=== PATIENT | male | born 1985 | race African-American/Black ===

== ENCOUNTER 2016-06-15 09:41 | Emergency (ER) | payer SELFPAY ==
[2016-06-15 09:45] VITALS: BP 135/86
--- NOTE | 2016-06-15 10:04 | ER Document Report ---
ED Neck/Back Problem - General Chief Complaint: Back Pain Stated Complaint: BACK PAIN Notes: The patient is a 30-year-old male, asked medical history chronic back pain, presents with his usual back pain for several years. He is requesting an x-ray of his lower spine because he took off work yesterday. He does not have a primary care physician. He denies saddle anesthesia, change in bowel or bladder , injury, fevers, IVDA, numbness, tingling or difficulty walking. TRAVEL OUTSIDE OF THE [place] IN LAST 30 DAYS: No - Related Data Allergies/Adverse Reactions: No Known Allergies Allergy (Unverified 06/15/16 09:45) Past Medical History - General Information source: Patient - Social History Smoking Status: Current Every Day Smoker Chew tobacco use (# tins/day): No Frequency of alcohol use: Occasional Drug Abuse: None Family History: Reviewed & Not Pertinent Patient has suicidal ideation: No Patient has homicidal ideation: No Renal/ Medical History: Denies: Hx Peritoneal Dialysis - Immunizations Immunizations up to date: No Hx Diphtheria, Pertussis, Tetanus Vaccination: No Review of Systems - Review of Systems Notes: REVIEW OF SYSTEMS: CONSTITUTIONAL: -fevers, -chills EENT: -eye pain, -difficulty swallowing, -nasal congestion CARDIOVASCULAR:-chest pain, -syncope. RESPIRATORY: -cough, -SOB GASTROINTESTINAL: -abdominal pain, - nausea, -vomiting, -diarrhea GENITOURINARY: -dysuria, -hematuria MUSCULOSKELETAL: +back pain, -neck pain SKIN: -rash or skin lesions. HEMATOLOGIC: -easy bruising or bleeding. LYMPHATIC: -swollen, enlarged glands. NEUROLOGICAL: -altered mental status or loss of consciousness, -headache, - neurologic symptoms PSYCHIATRIC: -anxiety, -depression. ALL OTHER SYSTEMS REVIEWED AND NEGATIVE. Physical Exam - Vital signs Vitals: Temp Pulse Resp BP Pulse Ox 98.8 F 78 20 135/86 H 98 06/15/16 09:44 06/15/16 09:44 06/15/16 09:44 06/15/16 09:44 06/15/16 09:44 - Notes Notes: PHYSICAL EXAMINATION: GENERAL: Well-appearing, well-nourished and in no acute distress. HEAD: Atraumatic, normocephalic. EYES: Pupils equal round and reactive to light, extraocular movements intact, sclera anicteric, conjunctiva are normal. ENT: nares patent, oropharynx clear without exudates. Moist mucous membranes. NECK: Normal range of motion, supple without lymphadenopathy LUNGS: Breath sounds clear to auscultation bilaterally and equal. No wheezes rales or rhonchi. HEART: Regular rate and rhythm without murmurs ABDOMEN: Soft, nontender, normoactive bowel sounds. No guarding, no rebound. No masses appreciated. EXTREMITIES: Normal range of motion, no pitting or edema. No cyanosis. Non- tender midline spine or paraspinal muscles. NEUROLOGICAL: Cranial nerves grossly intact. Normal speech, normal gait. Normal sensory, motor, and reflex exams. PSYCH: Normal mood, normal affect. SKIN: Warm, Dry, normal turgor, no rashes or lesions noted. Course - Re-evaluation Re-evalutation: Patient has no red flag signs for low back pain. Patient's back pain ongoing for multiple years. Told him that an x-ray of his lumbar spine is not indicated at this time. Referred him to primary care physician and instructed him to begin anti-inflammatories. - Vital Signs Vital signs: Temp Pulse Resp BP Pulse Ox 98.8 F 78 20 135/86 H 98 06/15/16 09:44 06/15/16 09:44 06/15/16 09:44 06/15/16 09:44 06/15/16 09:44 Discharge - Discharge Clinical Impression: Chronic back pain Qualifiers: Back pain location: low back pain Back pain laterality: bilateral Sciatica presence: without sciatica Qualified Code(s): M54.5 - Low back pain Condition: Good Disposition: HOME, SELF-CARE Additional Instructions: Take Motrin or Naprosyn to help with your low back pain. [facility] with [facility] for further evaluation and treatment. LOW BACK PAIN: Three out of every four people will have an episode of disabling back pain during their lifetime. Most commonly the pain is due to straining of the muscles and ligaments in the low back. Usual treatment includes: (1) Rest on a firm surface. Avoid lying on your stomach. (2) Ice pack the painful area. After a few days, gentle heat may be used intermittently to relax the area, or ice packs can be continued. (3) Medication may be needed -- muscle relaxers and antiinflammatory medicines are commonly used. (4) As the back improves, exercises are prescribed to strengthen the back and abdominal muscles. Your doctor will advise you on the proper care for your back at each stage in your recovery. You may be better in a few days -- or healing may take several weeks. If new symptoms of a "herniated disc" (radiation of pain, numbness, or tingling down the back of the leg or weakness in the leg) occur, you should be re-examined. Further testing may be necessary. ICE PACKS: Apply ice packs frequently against the painful area. Many different schedules are recommended, such as "20 minutes on, 20 minutes off" or "one hour ice, two hours rest." If you need to work, you may need to go longer between ice treatments. You should plan to have the area ice packed AT LEAST one fourth of the time. The ice should be applied over the wrap, tape, or splint, or over a layer of cloth -- not directly against the skin. Some ice bags have a built-in cloth and can be put directly on the skin. WARM PACKS: After approximately two days, apply gentle heat (such as a heating pad or hot water bottle) for about 20 to 30 minutes about every two hours -- at least four times daily. Warmth and elevation will help you make a more rapid recovery , and will ease the pain considerably. Do not use HOT heat, and never apply heat for longer than 30 minutes. The continuous heat can invisibly damage skin and muscles -- even when no burn is seen on the surface. Damaged muscles can make you MORE sore. FOLLOW-UP CARE: If you have been referred to a physician for follow-up care, call the physician s office for an appointment as you were instructed or within the next two days. If you experience worsening or a significant change in your symptoms, notify the physician immediately or return to the Emergency Department at any time for re-evaluation. Referrals: [facility] [Provider Group] - Follow up as needed
== END 2016-06-15 10:27 | disposition home or self-care (01) ==
LOC: ER 09:41
DX: G89.29 Other chronic pain (principal); M54.5 Low back pain; F17.200 Nicotine dependence, unspecified, uncomplicated
CPT/HCPCS: 99283

== ENCOUNTER 2019-01-31 18:06 | Emergency (ER) | payer SELFPAY ==
[2019-01-31] MEDS ORDERED: ASPIRIN 81 MG TABLET, CHEWABLE PO ONE (18:15)
[2019-01-31 18:36] LABS: ABSOLUTE EOSINOPHILS # (AUTO) 0.2 10^3/uL (0.0-0.6); ABSOLUTE LYMPHOCYTES (AUTO) 4.9 10^3/uL (0.5-4.7); ABSOLUTE MONOCYTES (AUTO) 0.9 10^3/uL (0.1-1.4); ABSOLUTE NEUT (AUTO) 5.5 10^3/uL (1.7-8.2); BASOPHILS % (AUTO) 0.4 % (0-2); EOSINOPHILS % (AUTO) 1.3 % (0-6); HEMATOCRIT 49.9 % (37.9-51.0); LYMPHOCYTES % (AUTO) 42.3 % (13-45); MEAN CORPUSCULAR HEMOGLOBIN 31.2 pg (27.0-33.4); MEAN CORPUSCULAR VOLUME 92 fl (80-97); PLATELET COUNT 275 10^3/uL (150-450); RED BLOOD COUNT 5.44 10^6/uL (4.35-5.55); RED CELL DISTRIBUTION WIDTH 12.4 % (11.5-14.0); TOTAL CELLS COUNTED % (AUTO) 100 %; WHITE BLOOD COUNT 11.5 10^3/uL (4.0-10.5)
[2019-01-31 18:55] LABS: ALBUMIN 4.3 g/dL (3.5-5.0); ALKALINE PHOSPHATASE 66 U/L (38-126); ASPARTATE AMINO TRANSFERASE 28 U/L (17-59); BILIRUBIN,DIRECT 0.1 mg/dL (0.0-0.4); BILIRUBIN,TOTAL 0.3 mg/dL (0.2-1.3); BLOOD UREA NITROGEN 12 mg/dL (7-20); CREATINE KINASE 190 U/L (55-170); GLUCOSE 106 mg/dL (75-110); TOTAL PROTEIN 7.2 g/dL (6.3-8.2)
[2019-01-31 19:00] LABS: CARBON DIOXIDE 17 mmol/L (22-30); CHLORIDE 102 mmol/L (98-107)
--- NOTE | 2019-01-31 19:02 | ER Document Report ---
ED Substance Abuse / Acc. OD - General Chief Complaint: Drug Abuse Stated Complaint: RAPID HEART RATE Time Seen by Provider: 01/31/19 18:51 Notes: Patient is a 33-year-old male presents to the emergency department after smoking cocaine and marijuana. Patient voices he was in a park today. States he typically does use cocaine and marijuana but today used it "from somebody new." States his hands started shaking. States he started feeling short of breath. Bystanders reported to EMS that the patient was screaming and yelling in the park. He was brought to the emergency department via EMS. Patient's denying any chest pain or respiratory distress at this time. Patient voices he just feels "tired." Pt. denies any trauma, falls. He voices he was "awake and alert to the whole time." [place] as though his hands were "going numb." Patient voices no medical problems, takes no daily medications, has no allergies. TRAVEL OUTSIDE OF THE [place] IN LAST 30 DAYS: No - Related Data Allergies/Adverse Reactions: No Known Allergies Allergy (Unverified 06/15/16 09:45) Past Medical History - General Information source: Patient, Emergency Med Personnel - Social History Smoking Status: Current Every Day Smoker Drug Abuse: Cocaine, Marijuana Family History: Reviewed & Not Pertinent Patient has suicidal ideation: No Patient has homicidal ideation: No Renal/ Medical History: Denies: Hx Peritoneal Dialysis - Immunizations Immunizations up to date: No Hx Diphtheria, Pertussis, Tetanus Vaccination: No Review of Systems - Review of Systems Constitutional: denies: Fever EENT: No symptoms reported Cardiovascular: See HPI Respiratory: See HPI Gastrointestinal: No symptoms reported Genitourinary: No symptoms reported Male Genitourinary: No symptoms reported Musculoskeletal: See HPI Skin: No symptoms reported Hematologic/Lymphatic: No symptoms reported Neurological/Psychological: See HPI Physical Exam - Vital signs Vitals: Resp Pulse Ox 17 99 01/31/19 18:15 01/31/19 18:15 - Notes Notes: GENERAL: Alert, interacts well. No acute distress. HEAD: Normocephalic, atraumatic. EYES: Pupils equal, round, and reactive to light. Extraocular movements intact. ENT: Oral mucosa moist, tongue midline. NECK: Full range of motion. Supple. Trachea midline. LUNGS: Clear to auscultation bilaterally, no wheezes, rales, or rhonchi. No respiratory distress. HEART: Tachycardic rate and rhythm. No murmur ABDOMEN: Soft, non-tender. Non-distended. Bowel sounds present in all 4 quadrants. EXTREMITIES: Moves all 4 extremities spontaneously. No edema, normal radial and dorsalis pedis pulses bilaterally. No cyanosis. 5 out of 5 strength noted all 4 extremities. BACK: no cervical, thoracic, lumbar midline tenderness. No saddle anesthesia, normal distal neurovascular exam. NEUROLOGICAL: Alert and oriented x3. Normal speech. cranial nerves II through XII grossly intact. PSYCH: Normal affect, normal mood. SKIN: Warm, dry, normal turgor. No rashes or lesions noted. Course - Re-evaluation Re-evalutation: 01/31/19 20:52 Laboratory 01/31/19 01/31/19 01/31/19 18:14 18:14 18:14 WBC 11.5 H RBC 5.44 Hgb 17.0 Hct 49.9 MCV 92 MCH 31.2 MCHC 34.0 RDW 12.4 Plt Count 275 Lymph % (Auto) 42.3 [place] % (Auto) 8.0 Eos % (Auto) 1.3 Baso % (Auto) 0.4 Absolute Neuts (auto) 5.5 Absolute Lymphs (auto) 4.9 H Absolute Monos (auto) 0.9 Absolute Eos (auto) 0.2 Absolute Basos (auto) 0.0 Seg Neutrophils % 48.0 Sodium 138.6 Potassium 3.6 Chloride 102 Carbon Dioxide 17 L Anion Gap 20 H BUN 12 Creatinine 1.83 H Est GFR ( Amer) 52 L Est GFR (MDRD) Non-Af 43 L Glucose 106 Calcium 9.5 Magnesium Total Bilirubin 0.3 Direct Bilirubin 0.1 Neonat Total Bilirubin Not Reportable Neonat Direct Bilirubin Not Reportable Neonat Indirect Bili Not Reportable AST 28 ALT 22 Alkaline Phosphatase 66 Creatine Kinase 190 H CK-MB (CK-2) 1.08 Troponin I < 0.012 Total Protein 7.2 Albumin 4.3 Urine Color Urine Appearance Urine pH Ur Specific [place] Urine Protein Urine Glucose (UA) Urine Ketones Urine Blood Urine Nitrite Urine Bilirubin Urine Urobilinogen Ur Leukocyte Esterase Urine WBC (Auto) Urine RBC (Auto) U Hyaline Cast (Auto) Urine Mucus (Auto) Urine Ascorbic Acid Salicylates Urine Opiates Screen Urine Methadone Screen Acetaminophen Ur Barbiturates Screen Ur Phencyclidine Scrn Ur Amphetamines Screen U Benzodiazepines Scrn Urine Cocaine Screen U Marijuana (THC) Screen Serum Alcohol 01/31/19 01/31/19 01/31/19 18:14 19:28 19:28 WBC RBC Hgb Hct MCV MCH MCHC RDW Plt Count Lymph % (Auto) [place] % (Auto) Eos % (Auto) Baso % (Auto) Absolute Neuts (auto) Absolute Lymphs (auto) Absolute Monos (auto) Absolute Eos (auto) Absolute Basos (auto) Seg Neutrophils % Sodium Potassium Chloride Carbon Dioxide Anion Gap BUN Creatinine Est GFR ( Amer) Est GFR (MDRD) Non-Af Glucose Calcium Magnesium 1.8 Total Bilirubin Direct Bilirubin Neonat Total Bilirubin Neonat Direct Bilirubin Neonat Indirect Bili AST ALT Alkaline Phosphatase Creatine Kinase CK-MB (CK-2) Troponin I Total Protein Albumin Urine Color YELLOW Urine Appearance CLEAR Urine pH 6.0 Ur Specific [place] 1.008 Urine Protein 30 H Urine Glucose (UA) NEGATIVE Urine Ketones 25 H Urine Blood NEGATIVE Urine Nitrite NEGATIVE Urine Bilirubin MODERATE H Urine Urobilinogen 4.0 H Ur Leukocyte Esterase TRACE H Urine WBC (Auto) 1 Urine RBC (Auto) 4 U Hyaline Cast (Auto) 31 Urine Mucus (Auto) MANY Urine Ascorbic Acid 20 H Salicylates < 1.0 L Urine Opiates Screen NEGATIVE Urine Methadone Screen NEGATIVE Acetaminophen < 10 L Ur Barbiturates Screen NEGATIVE Ur Phencyclidine Scrn NEGATIVE Ur Amphetamines Screen NEGATIVE U Benzodiazepines Scrn NEGATIVE Urine Cocaine Screen UNCONFIRMED POSITIVE U Marijuana (THC) Screen UNCONFIRMED POSITIVE Serum Alcohol < 10 Chest X-Ray 01/31/19 18:52 IMPRESSION: NO ACUTE RADIOGRAPHIC FINDING IN THE CHEST. Patient's labs do show a slight leukocytosis, does show a creatinine of 1.83 with a CK of 190. This could be due to dehydration or drug abuse. His troponin was negative, urine does show signs of proteinuria and ketones, also potential dehydration. I discussed with patient he should stop doing cocaine and marijuana, they were both positive and his drug tox. Patient's heart rate has come down to 71 at this time. Blood pressure 134/86, respiratory rate of 14, oxygen saturation 98% on room air. Patient voices no concerns at this time. I have again discussed with patient at bedside he should stop using cocaine and marijuana. I discussed following up at [facility] for continued evaluation of his kidney function. I discussed close return precautions. Patient stable for discharge. - Vital Signs Vital signs: Temp Pulse Resp BP Pulse Ox 20 152/91 H 97 01/31/19 19:01 01/31/19 19:01 01/31/19 19:01 - Laboratory Result Diagrams: 01/31/19 18:14 01/31/19 18:14 Laboratory results interpreted by me: 01/31/19 01/31/19 01/31/19 18:14 18:14 18:14 WBC 11.5 H Absolute Lymphs (auto) 4.9 H Carbon Dioxide 17 L Anion Gap 20 H Creatinine 1.83 H Est GFR ( Amer) 52 L Est GFR (MDRD) Non-Af 43 L Creatine Kinase 190 H Urine Protein Urine Ketones Urine Bilirubin Urine Urobilinogen Ur Leukocyte Esterase Urine Ascorbic Acid Salicylates < 1.0 L Acetaminophen < 10 L 01/31/19 19:28 WBC Absolute Lymphs (auto) Carbon Dioxide Anion Gap Creatinine Est GFR ( Amer) Est GFR (MDRD) Non-Af Creatine Kinase Urine Protein 30 H Urine Ketones 25 H Urine Bilirubin MODERATE H Urine Urobilinogen 4.0 H Ur Leukocyte Esterase TRACE H Urine Ascorbic Acid 20 H Salicylates Acetaminophen Discharge - Discharge Clinical Impression: Cocaine abuse, Marijuana abuse, Elevated serum creatinine Condition: Stable Disposition: HOME, SELF-CARE Instructions: Cocaine Abuse ([facility]) Additional Instructions: As we discussed you have been seen and treated in the emergency department for cocaine and marijuana abuse. Please stop using both of these drugs. Your kidney function was also noted to be elevated at today's visit. This could be because of dehydration. This could also be an injury to your kidneys from drug abuse. You should follow-up at 1 of the 2 clinics I have provided in this paper. You should get repeat laboratory testing within the next 12 to 24 hours. Please return to the emergency room for any concerns. Referrals: [facility] [Provider Group] - Follow up as needed [facility] [Provider Group] - Follow up as needed
[2019-01-31 19:04] LABS: CREATINE KINASE MB 1.08 ng/mL (<4.55)
[2019-01-31 19:05] LABS: TROPONIN I < 0.012 ng/mL
[2019-01-31] MEDS ORDERED: NORMAL SALINE 1000 ML 1,000 ML IV ONE (19:14)
[2019-01-31 19:17] LABS: CALCIUM 9.5 mg/dL (8.4-10.2); POTASSIUM 3.6 mmol/L (3.6-5.0)
[2019-01-31 19:19] LABS: ANION GAP 20 (5-19)
[2019-01-31 19:25] LABS: ACETAMINOPHEN < 10 ug/mL (10-30); ALCOHOL < 10 mg/dL (NONE DETECTED); SALICYLATE < 1.0 mg/dL (2.0-20.0)
--- NOTE | 2019-01-31 19:33 | RADIOLOGY REPORT (SQ) ---
EXAM DESCRIPTION: CHEST 2 VIEWS COMPLETED DATE/TIME: 01/31/2019 7:15 pm REASON FOR STUDY: SOB COMPARISON: None. EXAM PARAMETERS: NUMBER OF VIEWS: two views TECHNIQUE: Digital Frontal and Lateral radiographic views of the chest acquired. RADIATION DOSE: NA LIMITATIONS: none FINDINGS: LUNGS AND PLEURA: No opacities, masses or pneumothorax. No pleural effusion. MEDIASTINUM AND HILAR STRUCTURES: No masses or contour abnormalities. HEART AND VASCULAR STRUCTURES: Heart normal size. No evidence for failure. BONES: No acute findings. HARDWARE: None in the chest. OTHER: No other significant finding. IMPRESSION: NO ACUTE RADIOGRAPHIC FINDING IN THE CHEST. TECHNICAL DOCUMENTATION: JOB ID: [id number] [id number] 2010 [employer]- All Rights Reserved Reading location - IP/workstation name: [email or web address]
--- NOTE | 2019-01-31 19:39 | EKG REPORT ---
SEVERITY:- ABNORMAL ECG - SINUS TACHYCARDIA PROBABLE LEFT ATRIAL ABNORMALITY ABNRM R PROG, CONSIDER ASMI OR LEAD PLACEMENT : Confirmed by: Gwyn Sequeira MD 31-Jan-2019 19:38:50
[2019-01-31 20:04] LABS: APPEARANCE,URINE CLEAR; BILIRUBIN,URINE MODERATE (NEGATIVE); COLOR,URINE YELLOW; GLUCOSE, URINE NEGATIVE (NEGATIVE); KETONES,URINE 25 mg/dL (NEGATIVE); LEUKOCYTE ESTERASE,URINE TRACE (NEGATIVE); NITRITE,URINE NEGATIVE (NEGATIVE); PROTEIN,URINE 30 mg/dL (NEGATIVE)
[2019-01-31 20:09] LABS: URINE SPECIFIC GRAVITY 1.008
[2019-01-31 20:21] LABS: URINE AMPHETAMINES SCREEN NEGATIVE; URINE BARBITURATES SCREEN NEGATIVE; URINE BENZODIAZEPINES SCREEN NEGATIVE; URINE COCAINE SCREEN UNCONFIRMED POSITIVE; URINE MARIJUANA (THC) SCREEN UNCONFIRMED POSITIVE; URINE METHADONE SCREEN NEGATIVE; URINE PHENCYCLIDINE SCREEN NEGATIVE
[2019-01-31 21:09] VITALS: BP 130/78
== END 2019-01-31 21:12 | disposition home or self-care (01) ==
LOC: ER 18:06
DX: F14.10 Cocaine abuse, uncomplicated (principal); F12.10 Cannabis abuse, uncomplicated; R00.0 Tachycardia, unspecified; D72.829 Elevated white blood cell count, unspecified; R79.89 Other specified abnormal findings of blood chemistry; F17.200 Nicotine dependence, unspecified, uncomplicated
CPT/HCPCS: 93005; 99285; 96360; 36415; 82553; 80307 ×4; 82550; 83735; 85025; 80053; 81001; 84484; 71046; 93010; J7030

== ENCOUNTER 2019-02-02 00:47 | Emergency (ER) | payer SELFPAY ==
[2019-02-02] MEDS ORDERED: NORMAL SALINE 1000 ML 1,000 ML IV ONE (03:20)
--- NOTE | 2019-02-02 03:21 | ER Document Report ---
ED General - General Chief Complaint: Chest Pain Stated Complaint: SHORTNESS OF BREATH Time Seen by Provider: 02/02/19 02:51 Notes: Patient is a 33-year-old male that comes emergency department for chief complaint of chest discomfort and feeling shaky. He states he was seen just over a day ago in the emergency department after he smoked marijuana and used cocaine, he states that he felt terrible then and he is worried that it is "starting to come back". When I ask him if he had chest pain today he states "hernando" but states he is more concerned with the shaky feeling in his arms and legs. He denies using any medications or recreational substances again since that time. He does smoke, he denies any diagnosed medical problems or daily m edications. He denies family history of cardiac disease. He states he just wants to be checked out. He states he also was told his kidney functioning was borderline. TRAVEL OUTSIDE OF THE [place] IN LAST 30 DAYS: No - Related Data Allergies/Adverse Reactions: No Known Allergies Allergy (Unverified 06/15/16 09:45) Past Medical History - General Information source: Patient - Social History Smoking Status: Current Every Day Smoker Frequency of alcohol use: None Drug Abuse: Cocaine, Marijuana Lives with: Family Family History: Reviewed & Not Pertinent Patient has suicidal ideation: No Patient has homicidal ideation: No Renal/ Medical History: Denies: Hx Peritoneal Dialysis - Immunizations Immunizations up to date: No Hx Diphtheria, Pertussis, Tetanus Vaccination: No Review of Systems - Review of Systems Constitutional: See HPI EENT: No symptoms reported Cardiovascular: See HPI Respiratory: No symptoms reported Gastrointestinal: No symptoms reported Genitourinary: No symptoms reported Male Genitourinary: No symptoms reported Musculoskeletal: See HPI Skin: No symptoms reported Hematologic/Lymphatic: No symptoms reported Neurological/Psychological: No symptoms reported Physical Exam - Vital signs Vitals: Temp Pulse Resp BP Pulse Ox 97.7 F 51 L 24 H 150/92 H 100 02/02/19 00:57 02/02/19 00:57 02/02/19 00:57 02/02/19 00:57 02/02/19 00:57 - Notes Notes: GENERAL: Alert, interacts well. No acute distress. HEAD: Normocephalic, atraumatic. EYES: Pupils equal, round, and reactive to light. Extraocular movements intact. ENT: Oral mucosa moist, tongue midline. Oropharynx unremarkable. Airway patent. NECK: Full range of motion. Supple. Trachea midline. LUNGS: Clear to auscultation bilaterally, no wheezes, rales, or rhonchi. No respiratory distress. HEART: Borderline bradycardia, normal rhythm, no murmur ABDOMEN: Soft, non-tender. Non-distended. Bowel sounds present in all 4 quadrants. GENITOURINARY: Deferred EXTREMITIES: Moves all 4 extremities spontaneously. No edema, normal radial and dorsalis pedis pulses bilaterally. No cyanosis. BACK: no cervical, thoracic, lumbar midline tenderness. No saddle anesthesia, normal distal neurovascular exam. Moves all extremities in full range of motion. NEUROLOGICAL: Alert and oriented x3. Normal speech. Cranial nerves II through XII grossly intact. PSYCH: Slightly flat but otherwise unremarkable, cooperative and answers questions reasonably SKIN: Warm, dry, normal turgor. No rashes or lesions noted. Course - Re-evaluation Re-evalutation: Patient has borderline bradycardia now and tachycardia last time but last time he was under the influence of cocaine. He denies chest pain when I reevaluated him. He states he has been "kind of" having during the day. Troponin is negative again. Chest x-ray unremarkable. Kidney functioning improved, given additional IV fluids. He still states he is getting shaky he does feel much better. When I discussed work-up patient states satisfaction and appreciation. I discussed the extreme risks of cocaine abuse in regards to short and long-term fatality from this. Patient states he will stop using this completely. He states he was feeling down because of his situation with his girlfriend at home, however he denies SI or HI, he declines additional management for this and states things are going to be fine but they did prompt him to use in the first p lace. Discussed follow-up and return precautions. Stable at time of discharge. - Vital Signs Vital signs: Temp Pulse Resp BP Pulse Ox 98 F 59 L 15 119/66 100 02/02/19 06:01 02/02/19 06:01 02/02/19 06:01 02/02/19 06:01 02/02/19 06:01 - Laboratory Result Diagrams: 02/02/19 04:10 02/02/19 04:10 Laboratory results interpreted by me: 02/02/19 04:10 Chloride 109 H Creatinine 1.39 H Est GFR (MDRD) Non-Af 58 L Total Protein 5.8 L Albumin 3.2 L - EKG Interpretation by Me Additional EKG results interpreted by me: EKG shows sinus bradycardia at a rate of 47. PACs are present. No T wave inversions or ST segment changes in consecutive leads. No significant change from prior except the rate is significantly different. Discharge - Discharge Clinical Impression: Cocaine abuse, Marijuana abuse, Elevated serum creatinine Condition: Stable Disposition: HOME, SELF-CARE Additional Instructions: Your kidney functioning is improving. Continue hydration at home. Avoid any recreational drugs as these are extremely dangerous and will kill you. Follow- up with primary care. Come back for any concerning symptoms including difficulty breathing, chest pain, inability to urinate, fever, or any other concerning or worsening symptoms.
--- NOTE | 2019-02-02 03:57 | RADIOLOGY REPORT (SQ) ---
CLINICAL HISTORY: chest pain COMPARISON: 01/31/2019. TECHNIQUE: XR CHEST 1 VIEW 02/02/2019 2:57 AM CDT FINDINGS: Cardiac silhouette is normal in size. Lungs are clear without consolidation, atelectasis, mass or edema. There is no pleural effusion. There is no pneumothorax. There are no acute osseous findings. IMPRESSION: Clear lungs.
[2019-02-02 04:27] LABS: ABSOLUTE EOSINOPHILS # (AUTO) 0.1 10^3/uL (0.0-0.6); ABSOLUTE LYMPHOCYTES (AUTO) 1.8 10^3/uL (0.5-4.7); ABSOLUTE MONOCYTES (AUTO) 0.5 10^3/uL (0.1-1.4); ABSOLUTE NEUT (AUTO) 4.1 10^3/uL (1.7-8.2); BASOPHILS % (AUTO) 0.5 % (0-2); HEMATOCRIT 44.3 % (37.9-51.0); HEMOGLOBIN 15.2 g/dL (13.5-17.0); LYMPHOCYTES % (AUTO) 28.3 % (13-45); MEAN CORPUSCULAR HEMOGLOBIN 31.7 pg (27.0-33.4); MEAN CORPUSCULAR HGB CONC 34.3 g/dL (32.0-36.0); MEAN CORPUSCULAR VOLUME 92 fl (80-97); PLATELET COUNT 222 10^3/uL (150-450); RED BLOOD COUNT 4.79 10^6/uL (4.35-5.55); RED CELL DISTRIBUTION WIDTH 12.8 % (11.5-14.0); SEGMENTED NEUTROPHILS % (AUTO) 62.2 % (42-78); TOTAL CELLS COUNTED % (AUTO) 100 %; WHITE BLOOD COUNT 6.5 10^3/uL (4.0-10.5)
[2019-02-02 04:46] LABS: ALBUMIN 3.2 g/dL (3.5-5.0); ALKALINE PHOSPHATASE 49 U/L (38-126); ANION GAP 6 (5-19); ASPARTATE AMINO TRANSFERASE 21 U/L (17-59); BILIRUBIN,DIRECT 0.1 mg/dL (0.0-0.4); BILIRUBIN,TOTAL 0.2 mg/dL (0.2-1.3); BLOOD UREA NITROGEN 10 mg/dL (7-20); CARBON DIOXIDE 28 mmol/L (22-30); CHLORIDE 109 mmol/L (98-107); CREATINE KINASE 131 U/L (55-170); GLUCOSE 90 mg/dL (75-110); TOTAL PROTEIN 5.8 g/dL (6.3-8.2)
[2019-02-02 06:04] VITALS: BP 119/66
--- NOTE | 2019-02-02 07:27 | EKG REPORT ---
SEVERITY:- ABNORMAL ECG - SINUS BRADYCARDIA ATRIAL PREMATURE COMPLEX BORDERLINE RIGHT AXIS DEVIATION CONSIDER ANTEROSEPTAL INFARCT : Confirmed by: Gwyn Sequeira MD 02-Feb-2019 07:27:09
--- NOTE | 2019-02-03 07:08 | EKG REPORT ---
SEVERITY:- OTHERWISE NORMAL ECG - SINUS BRADYCARDIA BORDERLINE RIGHT AXIS DEVIATION : Confirmed by: Gwyn Sequeira MD 03-Feb-2019 07:07:50
== END 2019-02-02 06:03 | disposition home or self-care (01) ==
LOC: ER 00:47
DX: F14.10 Cocaine abuse, uncomplicated (principal); F12.10 Cannabis abuse, uncomplicated; R79.89 Other specified abnormal findings of blood chemistry; I49.1 Atrial premature depolarization; F17.200 Nicotine dependence, unspecified, uncomplicated
CPT/HCPCS: 93005; 36415; 82550; 85025; 80053; 84484; 71045; 93010; J7030; 96360; 96361; 99285

== ENCOUNTER 2019-02-02 07:19 | Emergency (ER) | payer SELFPAY ==
[2019-02-02] MEDS ORDERED: ASPIRIN 81 MG TABLET, CHEWABLE PO ONE (07:27)
[2019-02-02 08:06] LABS: ABSOLUTE EOSINOPHILS # (AUTO) 0.1 10^3/uL (0.0-0.6); ABSOLUTE LYMPHOCYTES (AUTO) 1.5 10^3/uL (0.5-4.7); ABSOLUTE MONOCYTES (AUTO) 0.4 10^3/uL (0.1-1.4); ABSOLUTE NEUT (AUTO) 3.8 10^3/uL (1.7-8.2); BASOPHILS % (AUTO) 0.6 % (0-2); EOSINOPHILS % (AUTO) 1.9 % (0-6); HEMOGLOBIN 14.6 g/dL (13.5-17.0); LYMPHOCYTES % (AUTO) 26.2 % (13-45); MEAN CORPUSCULAR HEMOGLOBIN 31.3 pg (27.0-33.4); MEAN CORPUSCULAR HGB CONC 33.9 g/dL (32.0-36.0); MEAN CORPUSCULAR VOLUME 92 fl (80-97); MONOCYTES % (AUTO) 6.2 % (3-13); PLATELET COUNT 203 10^3/uL (150-450); RED BLOOD COUNT 4.66 10^6/uL (4.35-5.55); RED CELL DISTRIBUTION WIDTH 12.3 % (11.5-14.0); SEGMENTED NEUTROPHILS % (AUTO) 65.1 % (42-78); TOTAL CELLS COUNTED % (AUTO) 100 %; WHITE BLOOD COUNT 5.8 10^3/uL (4.0-10.5)
[2019-02-02] MEDS ORDERED: NORMAL SALINE 1000 ML 1,000 ML IV ONE (08:09)
[2019-02-02 08:33] LABS: ALBUMIN 3.2 g/dL (3.5-5.0); ALKALINE PHOSPHATASE 44 U/L (38-126); ANION GAP 7 (5-19); ASPARTATE AMINO TRANSFERASE 22 U/L (17-59); BILIRUBIN,DIRECT 0.1 mg/dL (0.0-0.4); BILIRUBIN,TOTAL 0.4 mg/dL (0.2-1.3); BLOOD UREA NITROGEN 9 mg/dL (7-20); CALCIUM 8.7 mg/dL (8.4-10.2); CARBON DIOXIDE 23 mmol/L (22-30); CHLORIDE 109 mmol/L (98-107); CREATINE KINASE 151 U/L (55-170); GLUCOSE 88 mg/dL (75-110); POTASSIUM 4.4 mmol/L (3.6-5.0); TOTAL PROTEIN 5.9 g/dL (6.3-8.2)
[2019-02-02 08:33] LABS: APPEARANCE,URINE CLEAR; BILIRUBIN,URINE NEGATIVE (NEGATIVE); COLOR,URINE YELLOW; GLUCOSE, URINE NEGATIVE (NEGATIVE); KETONES,URINE NEGATIVE (NEGATIVE); LEUKOCYTE ESTERASE,URINE NEGATIVE (NEGATIVE); NITRITE,URINE NEGATIVE (NEGATIVE); PROTEIN,URINE NEGATIVE (NEGATIVE); URINE SPECIFIC GRAVITY 1.015; UROBILINOGEN,URINE NEGATIVE mg/dL (<2.0)
[2019-02-02 08:45] LABS: CREATINE KINASE MB 0.87 ng/mL (<4.55)
[2019-02-02 08:47] LABS: TROPONIN I < 0.012 ng/mL
--- NOTE | 2019-02-02 08:49 | ER Document Report ---
ED General - General Chief Complaint: Chest Pain Stated Complaint: CHEST PAIN Time Seen by Provider: 02/02/19 08:08 TRAVEL OUTSIDE OF THE [place] IN LAST 30 DAYS: No - HPI Notes: Patient is a 33-year-old male with history of marijuana and cocaine abuse, last use 2 days ago, who presents after just being discharged several hours ago for the same symptoms. Patient states that he has been having a chest pressure intermittently in his chest and does not radiate. Patient states that he currently does not have any discomfort, but did before he arrived. Patient states that he had an unremarkable work-up earlier this morning. Denies drug allergies. Denies any prolonged immobilization, distance travel, recent surgery/trauma, personal cancer history, hormone use, or previous DVT/PE. No history of CAD, DM, hypertension. Denies any headache, fever, neck pain, URI, sore throat, palpitations, syncope, cough, shortness of breath, wheeze, dyspnea, abdominal pain, nausea/vomiting/diarrhea, urinary retention, dysuria, hematuria, or rash. - Related Data Allergies/Adverse Reactions: No Known Allergies Allergy (Unverified 06/15/16 09:45) Past Medical History - Social History Smoking Status: Current Some Day Smoker Family History: Reviewed & Not Pertinent Patient has suicidal ideation: No Patient has homicidal ideation: No Renal/ Medical History: Denies: Hx Peritoneal Dialysis - Immunizations Immunizations up to date: No Hx Diphtheria, Pertussis, Tetanus Vaccination: No Review of Systems - Review of Systems -: Yes All other systems reviewed and negative Physical Exam - Vital signs Vitals: Temp Pulse BP Pulse Ox 98.1 F 43 L 135/85 H 99 02/02/19 07:26 02/02/19 07:26 02/02/19 07:26 02/02/19 07:26 - Notes Notes: PHYSICAL EXAMINATION: GENERAL: Well-appearing, well-nourished and in no acute distress. HEAD: Atraumatic, normocephalic. EYES: Pupils equal round and reactive to light, extraocular movements intact, sclera anicteric, conjunctiva are normal. ENT: Nares patent and without discharge. oropharynx clear without exudates. No tonsilar hypertrophy or erythema. Moist mucous membranes. NECK: Normal range of motion, supple without lymphadenopathy LUNGS: Breath sounds clear to auscultation bilaterally and equal. No wheezes rales or rhonchi. HEART: Regular rate and rhythm without murmurs, rubs, gallops. ABDOMEN: Soft, nontender, nondistended abdomen. No guarding, no rebound. No masses appreciated. Normal bowel sounds present. No CVA tenderness bilaterally. Musculoskeletal: FROM to passive/active. Strength 5+/5. Espinoza neg. No asymmetry to LE's. Extremities: No cyanosis, clubbing, or edema b/l. Peripheral pulses 2+. Capillary refill less than 3 seconds. NEUROLOGICAL: Normal speech, normal gait. PSYCH: Normal mood, normal affect. SKIN: Warm, Dry, normal turgor, no rashes or lesions noted. Course - Re-evaluation Re-evalutation: 02/02/19 08:47 Patient is an afebrile, well-hydrated, 33-year-old male who is presenting with nonspecific chest pain. Patient was evaluated and discharged earlier this morning for the same symptoms without any acute changes noted. An unremarkable work-up at that time. We will recheck labs, tsh, magnesium. Will provide another liter of fluid, but he did receive 2 L last night. He is nontoxic- appearing. Patient's heart rate has been fluctuating from 40-70's approximately on the monitor, but his blood pressure has been acceptable and is currently 128/89. Reviewed HR and case with Dr. Walker who is in agreement with plan thus far and no further work up warranted otherwise if unremarkable labs. EKG acceptable. 02/02/19 11:[address] Mckenna (cardio) who does not recommend any further management and is okay with his HR 40-70 as his BP is good as well. He can f/u as outpatient. Patient is an afebrile, well-hydrated 33-year-old male who presents to the ED with atypical chest pain, possible correlation with his cocaine use. Vitals are acceptable without any significant tachycardia, tachypnea, or hypoxia. PE is otherwise unremarkable aside from the reproducible lateral lower chest wall tenderness. Patient is nontoxic-appearing and is tolerating p.o. without any difficulties. Pt is currently asymptomatic. CBC, CMP, EKG/cardiac enzymes 2 (including the one early this morning), chest x-ray are all unremarkable for any acute pathology. Patient has a heart score of 2, Wells score of 0, and is PERC negative. 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 Patient does not have any chest pain, dyspnea, or shortness of breath at this time. Patient's presentation and symptomatology creates low suspicion for ACS, PE, pneumothorax, pericarditis, dissection, respiratory compromise, severe dehydration, sepsis, meningitis, or other systemic emergent condition at this time. Patient is aware that his condition can change from initial presentation and he needs to monitor symptoms closely and seek medical attention for any acute changes. Pt is feeling better and would like to go home. Recommend conservative measures for symptoms. Recheck with your PCM in 2-3 days. Consider consult with Cardiology. Return to the ED with any worsening/concerning symptoms otherwise as reviewed in discharge. Patient is in agreement. - Vital Signs Vital signs: Temp Pulse Resp BP Pulse Ox 98.1 F 43 L 16 120/76 100 02/02/19 07:26 02/02/19 07:26 02/02/19 11:01 02/02/19 11:01 02/02/19 11:01 - Laboratory Result Diagrams: 02/02/19 07:40 02/02/19 07:40 Laboratory results interpreted by me: 02/02/19 07:40 Chloride 109 H Total Protein 5.9 L Albumin 3.2 L - EKG Interpretation by Ia EKG shows normal: Sinus rhythm, ST-T Waves Rate: Bradycardia Rhythm: Arrthymia Discharge - Discharge Clinical Impression: Atypical chest pain Condition: Stable Disposition: HOME, SELF-CARE Instructions: Chest Pain of Unclear Cause ([facility]) Additional Instructions: Maintain adequate fluid and food intake Take home medications as directed Avoid drug use* Monitor blood pressure daily and keep a log Monitor symptoms for any acute changes Recheck with your PCM in 2-3 days Schedule a follow-up with cardiology Return to the ED with any worsening symptoms and/or development of fever, headache, chest pain, palpitations, syncope, shortness of breath, trouble breathing, abdominal pain, n/v/d, blood in stool/urine, loss of control of bowel/bladder, urinary retention, muscle weakness/paralysis, numbness/tingling, or other worsening symptoms that are concerning to you. Forms: Smoking Cessation Education Referrals: GWENDOLYN MCKENNA MD [ACTIVE STAFF] - Follow up in 3-5 days
[2019-02-02 09:31] LABS: URINE AMPHETAMINES SCREEN NEGATIVE; URINE BARBITURATES SCREEN NEGATIVE; URINE BENZODIAZEPINES SCREEN NEGATIVE; URINE COCAINE SCREEN UNCONFIRMED POSITIVE; URINE MARIJUANA (THC) SCREEN UNCONFIRMED POSITIVE; URINE METHADONE SCREEN NEGATIVE; URINE PHENCYCLIDINE SCREEN NEGATIVE
[2019-02-02 11:39] VITALS: BP 118/76
--- NOTE | 2019-02-02 12:40 | EKG REPORT ---
SEVERITY:- ABNORMAL ECG - SINUS ARRHYTHMIA, RATE 45-67 ABNRM R PROG, CONSIDER ASMI OR LEAD PLACEMENT RIGHT AXIS DEVIATION : Confirmed by: Gwyn Sequeira MD 02-Feb-2019 12:40:20
== END 2019-02-02 11:39 | disposition home or self-care (01) ==
LOC: ER 07:19
DX: R07.89 Other chest pain (principal); R00.1 Bradycardia, unspecified; F17.200 Nicotine dependence, unspecified, uncomplicated; F12.10 Cannabis abuse, uncomplicated; F14.10 Cocaine abuse, uncomplicated
CPT/HCPCS: 93005; 36415; 82553; 82550; 83735; 84443; 87070; 81001; 84484; 80307; 93010; J7030; 87086; 96360; 99285

== ENCOUNTER 2019-02-02 17:02 | Emergency (ER) | payer SELFPAY ==
--- NOTE | 2019-02-02 17:29 | ER Document Report ---
ED Medical Screen (RME) - General Chief Complaint: Chest Pain Stated Complaint: CHEST PAIN Time Seen by Provider: 02/02/19 17:21 Mode of Arrival: Ambulatory Information source: Patient Notes: This 33-year-old male presents to the emergency department as of fourth time in the last 3 days. Reports he has extreme chest pressure whenever he walks. Also discusses having seizures. Reports that he was instructed to follow-up with retail representative but has not done it. Patient admits doing cocaine but has not done anything since Thursday is still having symptoms. He seems very worried. Reports whenever he walks he has chest pressure difficulty breathing. No fever vomiting diarrhea. No other past history such as congestive heart failure cardiac disease. EKG shows sinus bradycardia no ST elevation no T wave inversion. I have greeted and performed a rapid initial assessment of this patient. A comprehensive ED assessment and evaluation of the patient, analysis of test results and completion of the medical decision making process will be conducted by additional ED providers. Dictation of this chart was performed using voice recognition software; therefore, there may be some unintended grammatical errors. TRAVEL OUTSIDE OF THE [place] IN LAST 30 DAYS: No - Related Data Allergies/Adverse Reactions: No Known Allergies Allergy (Unverified 06/15/16 09:45) Past Medical History Renal/ Medical History: Denies: Hx Peritoneal Dialysis - Immunizations Immunizations up to date: No Hx Diphtheria, Pertussis, Tetanus Vaccination: No
--- NOTE | 2019-02-02 18:09 | RADIOLOGY REPORT (SQ) ---
EXAM DESCRIPTION: CHEST 2 VIEWS COMPLETED DATE/TIME: 02/02/2019 5:41 pm REASON FOR STUDY: cp difficulty breathing COMPARISON: 01/31/2019 TECHNIQUE: Frontal and lateral radiographic views of the chest acquired. NUMBER OF VIEWS: Two view. LIMITATIONS: None. FINDINGS: LUNGS AND PLEURA: No pneumothorax. No consolidation or pleural effusion. MEDIASTINUM AND HILAR STRUCTURES: Stable. HEART AND VASCULAR STRUCTURES: Stable. BONES: No acute findings. HARDWARE: None in the chest. OTHER: No other significant finding. IMPRESSION: NO ACUTE FINDINGS. TECHNICAL DOCUMENTATION: JOB ID: [id number] [id number] 2010 [email or web address] All Rights Reserved Reading location - IP/workstation name: [employer]
[2019-02-02 18:18] LABS: ABSOLUTE EOSINOPHILS # (AUTO) 0.2 10^3/uL (0.0-0.6); ABSOLUTE LYMPHOCYTES (AUTO) 1.6 10^3/uL (0.5-4.7); ABSOLUTE MONOCYTES (AUTO) 0.5 10^3/uL (0.1-1.4); ABSOLUTE NEUT (AUTO) 4.5 10^3/uL (1.7-8.2); BASOPHILS % (AUTO) 0.4 % (0-2); EOSINOPHILS % (AUTO) 2.4 % (0-6); HEMATOCRIT 42.6 % (37.9-51.0); HEMOGLOBIN 14.8 g/dL (13.5-17.0); LYMPHOCYTES % (AUTO) 23.6 % (13-45); MEAN CORPUSCULAR HGB CONC 34.8 g/dL (32.0-36.0); MEAN CORPUSCULAR VOLUME 92 fl (80-97); MONOCYTES % (AUTO) 7.1 % (3-13); PLATELET COUNT 209 10^3/uL (150-450); RED BLOOD COUNT 4.63 10^6/uL (4.35-5.55); RED CELL DISTRIBUTION WIDTH 12.5 % (11.5-14.0); SEGMENTED NEUTROPHILS % (AUTO) 66.5 % (42-78); TOTAL CELLS COUNTED % (AUTO) 100 %; WHITE BLOOD COUNT 6.8 10^3/uL (4.0-10.5)
[2019-02-02 18:42] LABS: URINE AMPHETAMINES SCREEN NEGATIVE; URINE BARBITURATES SCREEN NEGATIVE; URINE BENZODIAZEPINES SCREEN NEGATIVE; URINE COCAINE SCREEN UNCONFIRMED POSITIVE; URINE MARIJUANA (THC) SCREEN UNCONFIRMED POSITIVE; URINE METHADONE SCREEN NEGATIVE; URINE PHENCYCLIDINE SCREEN NEGATIVE
[2019-02-02 19:38] LABS: ALBUMIN 3.3 g/dL (3.5-5.0); ALKALINE PHOSPHATASE 42 U/L (38-126); ANION GAP 5 (5-19); ASPARTATE AMINO TRANSFERASE 20 U/L (17-59); BILIRUBIN,DIRECT 0.1 mg/dL (0.0-0.4); BILIRUBIN,TOTAL 0.4 mg/dL (0.2-1.3); BLOOD UREA NITROGEN 8 mg/dL (7-20); CALCIUM 8.8 mg/dL (8.4-10.2); CARBON DIOXIDE 25 mmol/L (22-30); CHLORIDE 107 mmol/L (98-107); CREATINE KINASE 195 U/L (55-170); GLUCOSE 100 mg/dL (75-110); TOTAL PROTEIN 6.1 g/dL (6.3-8.2)
[2019-02-02 19:49] LABS: CREATINE KINASE MB 0.71 ng/mL (<4.55)
[2019-02-02 19:53] LABS: TROPONIN I < 0.012 ng/mL
[2019-02-02 20:35] VITALS: BP 131/80
--- NOTE | 2019-02-02 20:52 | ER Document Report ---
ED Cardiac - General Chief Complaint: Chest Pain Stated Complaint: CHEST PAIN Time Seen by Provider: 02/02/19 17:21 Primary Care Provider: [facility] [Outside] - Follow up as needed GWENDOLYN MCKENNA MD [ACTIVE STAFF] - Follow up as needed Mode of Arrival: Ambulatory Information source: Patient Notes: Patient is a 33-year-old male with admitted history of cocaine abuse presenting to the emergency department for the third time today with complaints of chest pain. Patient reports chest pain worse with movement, states chest pain goes away with rest. Patient reports last time he is cocaine was 3 days ago. He states he is scared something is going on with his heart. Patient also reports being homeless. Patient denies any associated symptoms with this chest pain to include nausea, diaphoresis or radiation of the pain. He states the pain feels like a sharp stabbing pain and also a squeezing pain. TRAVEL OUTSIDE OF THE [place] IN LAST 30 DAYS: No - Related Data Allergies/Adverse Reactions: No Known Allergies Allergy (Unverified 06/15/16 09:45) Past Medical History - General Information source: Patient - Social History Smoking Status: Current Every Day Smoker Chew tobacco use (# tins/day): No Frequency of alcohol use: Occasional Drug Abuse: Cocaine, Marijuana Family History: Reviewed & Not Pertinent Patient has suicidal ideation: No Patient has homicidal ideation: No - Medical History Medical History: Negative Renal/ Medical History: Denies: Hx Peritoneal Dialysis Surgical Hx: Negative - Immunizations Immunizations up to date: No Hx Diphtheria, Pertussis, Tetanus Vaccination: No Review of Systems - Review of Systems Constitutional: No symptoms reported EENT: No symptoms reported Cardiovascular: Chest pain Respiratory: No symptoms reported Gastrointestinal: No symptoms reported Genitourinary: No symptoms reported Male Genitourinary: No symptoms reported Musculoskeletal: No symptoms reported Skin: No symptoms reported Hematologic/Lymphatic: No symptoms reported Neurological/Psychological: No symptoms reported Physical Exam - Vital signs Vitals: Temp Pulse Resp BP Pulse Ox 98.3 F 46 L 18 125/94 H 99 02/02/19 17:19 02/02/19 17:19 02/02/19 17:19 02/02/19 17:19 02/02/19 17:19 - Notes Notes: PHYSICAL EXAMINATION: GENERAL: Well-appearing, well-nourished and in no acute distress. HEAD: Atraumatic, normocephalic. EYES: Pupils equal round and reactive to light, extraocular movements intact, sclera anicteric, conjunctiva are normal. ENT: Nares patent, oropharynx clear without exudates. Moist mucous membranes. NECK: Normal range of motion, supple without lymphadenopathy LUNGS: Breath sounds clear to auscultation bilaterally and equal. No wheezes rales or rhonchi. HEART: Regular rate and rhythm without murmurs ABDOMEN: Soft, nontender, nondistended abdomen. No guarding, no rebound. No masses appreciated. Musculoskeletal: Normal range of motion, no pitting or edema. No cyanosis. NEUROLOGICAL: Cranial nerves grossly intact. Normal speech, normal gait. Normal sensory, motor exams PSYCH: Normal mood, normal affect. SKIN: Warm, Dry, normal turgor, no rashes or lesions noted. Course - Re-evaluation Re-evalutation: Patient's work-up today has again been unremarkable. Troponins are negative. This is the third troponin patient has had drawn today as he has been here 3 separate times. He currently denies any active chest pain. When I went to discuss test results with the patient patient asked why he could not just stay in the emergency department for the night until he had a ride in the morning. I discussed with patient that unfortunately we cannot allow people to spend the night in the ER unless there is medical necessity. Patient will be discharged home at this time. - Vital Signs Vital signs: Temp Pulse Resp BP Pulse Ox 98.2 F 65 18 131/80 H 97 02/02/19 20:32 02/02/19 20:32 02/02/19 20:32 02/02/19 20:32 02/02/19 20:32 - Laboratory Result Diagrams: 02/02/19 17:42 02/02/19 17:42 Laboratory results interpreted by me: 02/02/19 17:42 Creatine Kinase 195 H Total Protein 6.1 L Albumin 3.3 L Discharge - Discharge Clinical Impression: Cocaine abuse Chest pain Qualifiers: Chest pain type: unspecified Qualified Code(s): R07.9 - Chest pain, unspecified Condition: Stable Disposition: HOME, SELF-CARE Additional Instructions: Chest Pain of Unclear Cause The exact cause of your chest pain isn't clear. Fortunately, there is no evidence of a dangerous medical condition. Further testing may be required to find the source of the pain. Most often, we find that this pain is coming from the chest wall -- the muscles or rib joints in the chest. But chest pain can come from the lung and lung lining, the esophagus, the heart valves or heart lining, and even the stomach or gallbladder. Rest. Eat lightly until the pain is gone. We may prescribe medicine for pain and inflammation. You should call the physician immediately if the pain radiates to the shoulder, jaw or arms; if you start to run a fever or develop a cough; or if you develop shortness of breath, or other new or alarming symptoms. Your work-up is been negative here in the emergency department today. Your work-up was negative during all 3 visits to the emergency department today. It is very important that you do not use any more cocaine. It may kill you. It is also important if you continue to have chest pain to please follow-up with cardiology, a phone number has been given to you below. If you do not have a primary care provider you can also establish care with the [facility]. Return to the emergency department with any new or worsening symptoms. Referrals: GWENDOLYN MCKENNA MD [ACTIVE STAFF] - Follow up as needed [facility] [Outside] - Follow up as needed
== END 2019-02-02 20:58 | disposition home or self-care (01) ==
LOC: ER 17:02
DX: R07.9 Chest pain, unspecified (principal); F14.10 Cocaine abuse, uncomplicated; F12.10 Cannabis abuse, uncomplicated; F17.200 Nicotine dependence, unspecified, uncomplicated
CPT/HCPCS: 36415; 71046; 80307; 82550; 82553; 84484; 87070

== ENCOUNTER 2019-02-03 01:47 | Emergency (ER) | payer SELFPAY ==
--- NOTE | 2019-02-03 07:07 | EKG REPORT ---
SEVERITY:- OTHERWISE NORMAL ECG - SINUS BRADYCARDIA 41 BORDERLINE RIGHT AXIS DEVIATION : Confirmed by: Gwyn Sequeira MD 03-Feb-2019 07:07:28
--- NOTE | 2019-02-03 08:11 | ER Document Report ---
ED General - General Chief Complaint: Other Stated Complaint: PRESSURE IN CHEST Time Seen by Provider: 02/03/19 08:05 Primary Care Provider: SHAWANDA HAYES MD [ACTIVE STAFF] - Follow up as needed RACHELLE NUÑEZ MD [EMERITUS] - Follow up in 3-5 days Mode of Arrival: Ambulatory Information source: Patient TRAVEL OUTSIDE OF THE [place] IN LAST 30 DAYS: No - HPI Notes: 33-year-old male presents to the ED for reevaluation of chest pain for the fourth time in the last 24 hours. Patient states that he would like to inquire about rehabilitation services due to chronic use of cocaine. Patient states chest pain worse with movement, states he has not had any cocaine in the last 4 days. Patient has had 3 separate work-ups within 24 hours for cardiac evaluation which were all negative. denies fevers, chills, chest pain,palpitations, shortness of breath, dyspnea, nausea, vomiting, diarrhea, abdominal pain, hematuria,blurred vision, double vision, loss of vision, speech changes, LH, dizziness, syncope, headaches, wheezing, ST, URI, neck pain, weakness, bowel or bladder dysfunction, saddle anesthesia, numbness or tingling in bilateral upper or lower extremities equally, muscle paralysis, weakness in bilateral upper or lower extremities equally or rash. - Related Data Allergies/Adverse Reactions: No Known Allergies Allergy (Unverified 06/15/16 09:45) Past Medical History - General Information source: Patient - Social History Smoking Status: Current Every Day Smoker Frequency of alcohol use: Heavy Drug Abuse: Cocaine, Marijuana Family History: Reviewed & Not Pertinent Patient has suicidal ideation: No Patient has homicidal ideation: No Renal/ Medical History: Denies: Hx Peritoneal Dialysis - Immunizations Immunizations up to date: No Hx Diphtheria, Pertussis, Tetanus Vaccination: No Review of Systems - Review of Systems Constitutional: No symptoms reported EENT: No symptoms reported Cardiovascular: See HPI Respiratory: No symptoms reported Gastrointestinal: No symptoms reported Genitourinary: No symptoms reported Male Genitourinary: No symptoms reported Musculoskeletal: No symptoms reported Skin: No symptoms reported Hematologic/Lymphatic: No symptoms reported Neurological/Psychological: No symptoms reported Physical Exam - Vital signs Vitals: Temp Pulse Resp BP Pulse Ox 97.9 F 84 14 128/83 H 100 02/03/19 01:50 02/03/19 01:50 02/03/19 01:50 02/03/19 01:50 02/03/19 01:50 - Notes Notes: PHYSICAL EXAMINATION:reviewed vital signs by RN GENERAL: Well-appearing, well-nourished and in no acute distress. HEAD: Atraumatic, normocephalic. EYES: Pupils equal round and reactive to light, extraocular movements intact, sclera anicteric, conjunctiva are normal. ENT: Nares patent, oropharynx clear without exudates. Moist mucous membranes. NECK: Normal range of motion, supple without lymphadenopathy LUNGS: Breath sounds clear to auscultation bilaterally and equal. No wheezes rales or rhonchi. HEART: Bradycardia and rhythm without murmurs ABDOMEN: Soft, nontender, nondistended abdomen. No guarding, no rebound. No masses appreciated. Musculoskeletal: Normal range of motion, no pitting or edema. No cyanosis. NEUROLOGICAL: Cranial nerves grossly intact. Normal speech, normal gait. Normal sensory, motor exams PSYCH: Normal mood, normal affect. SKIN: Warm, Dry, normal turgor, no rashes or lesions noted. Course - Re-evaluation Re-evalutation: 02/03/19 15:24 Afebrile vital stable no distress. Troponin negative, EKG sinus rhythm, no ST segment elevation, no ST segment changes. CBC negative for leukocytosis or anemia, CMP negative for hepatic or renal dysfunction, no electrolyte disturbances. Patient states that he would like rehabilitation services, patient states that his chest pain is not worse from the last 24 hours or has not changed, this is a new provider seeing the patient. insulation worker apprentice at bedside and gave patient a list of rehabilitation services and facilities that patient needs to contact in order to obtain services. On reevaluation, patient states that symptoms still remain the same. Discussed the patient that abusing illicit substances can cause tremendous stress on the heart. Patient's heart rate has continually been bradycardic in the 40s when reevaluating his vitals are within 24 hours. This seems to be patient's baseline. Patient verbalized that he would contact rehabilitation services to help with his addiction for cocaine. After performing a Medical Screening Examination, I estimate there is LOW risk for RUPTURED ESOPHAGUS, PNEUMOTHORAX, PULMONARY EMBOLISM, ACUTE CORONARY SYNDROME, OR THORACIC AORTIC DISSECTION, thus I consider the discharge disposition reasonable. I have reevaluated this patient multiple times and no significant life threatening changes are noted. The patient and I have discussed the diagnosis and risks, and we agree with discharging home with close follow- up. We also discussed returning to the Emergency Department immediately if new or worsening symptoms occur. We have discussed the symptoms which are most concerning (e.g., bloody sputum, worsening pain or shortness of breath) that necessitate immediate return. - Vital Signs Vital signs: Temp Pulse Resp BP Pulse Ox 98.7 F 43 L 14 131/78 H 100 02/03/19 14:18 02/03/19 14:18 02/03/19 01:50 02/03/19 14:18 02/03/19 14:18 - Laboratory Result Diagrams: 02/03/19 09:40 02/03/19 09:40 Laboratory results interpreted by me: 02/03/19 09:40 Chloride 109 H BUN 6 L Creatine Kinase 191 H Discharge - Discharge Clinical Impression: Cocaine abuse, Atypical chest pain, Chest pain, Marijuana abuse Condition: Stable Disposition: HOME, SELF-CARE Instructions: Cocaine Abuse ([facility]), Chest Pain of Unclear Cause ([facility]) Additional Instructions: Had several evaluations for chest pain within the last 24 hours, all of your labs came back negative, you do not have any elevated cardiac enzymes, EKGs have been normal. It is advised that you stop doing illicit drugs as this can potentiate heart problems especially cocaine. Advised to please follow-up with a locator specialist as well as a primary care provider. Social work has been around to see you, has given you a list of several resources for rehabilitation for drug abuse. Return immediately for any new or worsening symptoms.You should urgently seek rehab or a similar resource. You can call [phone]-HELP to find local resources. Return if you have any symptoms that are concerning to you including difficulty breathing, fever, persistent vomiting, or any other symptoms that are concerning to you. Follow up with primary care provider, call tomorrow to make followup appointment. Referrals: SHAWANDA HAYES MD [ACTIVE STAFF] - Follow up as needed RACHELLE NUÑEZ MD [EMERITUS] - Follow up in 3-5 days
[2019-02-03 10:07] LABS: ABSOLUTE EOSINOPHILS # (AUTO) 0.1 10^3/uL (0.0-0.6); ABSOLUTE LYMPHOCYTES (AUTO) 1.4 10^3/uL (0.5-4.7); ABSOLUTE MONOCYTES (AUTO) 0.4 10^3/uL (0.1-1.4); ABSOLUTE NEUT (AUTO) 4.5 10^3/uL (1.7-8.2); BASOPHILS % (AUTO) 0.6 % (0-2); EOSINOPHILS % (AUTO) 1.5 % (0-6); HEMATOCRIT 46.2 % (37.9-51.0); HEMOGLOBIN 15.9 g/dL (13.5-17.0); LYMPHOCYTES % (AUTO) 22.1 % (13-45); MEAN CORPUSCULAR HEMOGLOBIN 31.7 pg (27.0-33.4); MEAN CORPUSCULAR HGB CONC 34.5 g/dL (32.0-36.0); MEAN CORPUSCULAR VOLUME 92 fl (80-97); MONOCYTES % (AUTO) 5.4 % (3-13); PLATELET COUNT 226 10^3/uL (150-450); RED BLOOD COUNT 5.01 10^6/uL (4.35-5.55); RED CELL DISTRIBUTION WIDTH 12.5 % (11.5-14.0); SEGMENTED NEUTROPHILS % (AUTO) 70.4 % (42-78); TOTAL CELLS COUNTED % (AUTO) 100 %; WHITE BLOOD COUNT 6.4 10^3/uL (4.0-10.5)
[2019-02-03 10:28] LABS: ALBUMIN 3.7 g/dL (3.5-5.0); ALKALINE PHOSPHATASE 48 U/L (38-126); ANION GAP 8 (5-19); ASPARTATE AMINO TRANSFERASE 22 U/L (17-59); BILIRUBIN,DIRECT 0.1 mg/dL (0.0-0.4); BILIRUBIN,TOTAL 0.5 mg/dL (0.2-1.3); BLOOD UREA NITROGEN 6 mg/dL (7-20); CALCIUM 9.2 mg/dL (8.4-10.2); CARBON DIOXIDE 24 mmol/L (22-30); CHLORIDE 109 mmol/L (98-107); CREATINE KINASE 191 U/L (55-170); GLUCOSE 83 mg/dL (75-110); POTASSIUM 4.4 mmol/L (3.6-5.0); TOTAL PROTEIN 6.6 g/dL (6.3-8.2)
[2019-02-03 14:30] VITALS: BP 131/78
== END 2019-02-03 14:28 | disposition home or self-care (01) ==
LOC: ER 01:47
DX: F14.20 Cocaine dependence, uncomplicated (principal); R07.9 Chest pain, unspecified; R07.89 Other chest pain; F12.10 Cannabis abuse, uncomplicated; F17.200 Nicotine dependence, unspecified, uncomplicated
CPT/HCPCS: 36415; 80053; 82550; 82553; 84484; 85025; 93005; 93010

== ENCOUNTER 2019-02-04 02:30 | Emergency (ER) | payer SELFPAY ==
[2019-02-04 04:21] LABS: APPEARANCE,URINE CLEAR; BILIRUBIN,URINE NEGATIVE (NEGATIVE); COLOR,URINE YELLOW; GLUCOSE, URINE NEGATIVE (NEGATIVE); KETONES,URINE TRACE mg/dL (NEGATIVE); LEUKOCYTE ESTERASE,URINE NEGATIVE (NEGATIVE); NITRITE,URINE NEGATIVE (NEGATIVE); PROTEIN,URINE NEGATIVE (NEGATIVE); URINE SPECIFIC GRAVITY 1.013
--- NOTE | 2019-02-04 06:29 | EKG REPORT ---
SEVERITY:- ABNORMAL ECG - SINUS BRADYCARDIA CONSIDER ANTEROSEPTAL INFARCT : Confirmed by: Gwyn Sequeira MD 04-Feb-2019 06:29:12
--- NOTE | 2019-02-04 09:58 | ER Document Report ---
HPI - HPI Time Seen by Provider: 02/04/19 06:29 Pain Level: 1 Context: Patient is a 33-year-old male presents to emergency department with a chief complaint of weakness. Patient reports he woke up this morning around 2 AM feeling very hot and shaky. Patient reports he was breathing fast at that time and had a numbness all over his body. Patient reports he has been told in the past that he has anxiety. Patient reports he feels calm at this time. Patient reports nausea without vomiting or diarrhea. Patient has been seen in the emergency department multiple times over the past week for chest pain. Patient denies chest pain at this time. Patient was given resources for drug rehab yesterday as he does report a problem with cocaine use. Patient reports his last use of cocaine was 4 to 5 days ago. Patient denies any other complaints at this time. - CONSTITUTIONAL Constitutional: DENIES: Fever, Chills - REPRODUCTIVE Reproductive: DENIES: : Past Medical History - General Information source: Patient - Social History Smoking Status: Current Every Day Smoker Chew tobacco use (# tins/day): No Frequency of alcohol use: Social Drug Abuse: Cocaine, Marijuana Lives with: Alone Family History: Reviewed & Not Pertinent Patient has suicidal ideation: No Patient has homicidal ideation: No - Past Medical History Cardiac Medical History: Reports: None Pulmonary Medical History: Reports: None EENT Medical History: Reports: None Neurological Medical History: Reports: None Endocrine Medical History: Reports: None Renal/ Medical History: Reports: None. Denies: Hx Peritoneal Dialysis Malignancy Medical History: Reports None GI Medical History: Reports: None Musculoskeletal Medical History: Reports None Skin Medical History: Reports None Psychiatric Medical History: Reports: None Traumatic Medical History: Reports: None Infectious Medical History: Reports: None Surgical Hx: Negative - Immunizations Immunizations up to date: No Hx Diphtheria, Pertussis, Tetanus Vaccination: No Vertical Provider Document - CONSTITUTIONAL Agree With Documented VS: Yes Exam Limitations: No Limitations General Appearance: No Apparent Distress - INFECTION CONTROL TRAVEL OUTSIDE OF THE [place] IN LAST 30 DAYS: No - HEENT HEENT: Atraumatic, Normocephalic, PERRLA - NECK Neck: Normal Inspection - RESPIRATORY Respiratory: Breath Sounds Normal, No Respiratory Distress - CARDIOVASCULAR Cardiovascular: Regular Rate, Regular Rhythm - GI/ABDOMEN Gastrointestinal: Abdomen Soft, Abdomen Non-Tender, Normal Bowel Sounds - MUSCULOSKELETAL/EXTREMETIES Musculoskeletal/Extremeties: FROM - NEURO Level of Consciousness: Awake, Alert, Appropriate - DERM Integumentary: Warm, Dry, No Rash Course - Re-evaluation Re-evalutation: 02/04/19 09:55 Upon initial evaluation patient has been in the emergency department patient had already been in the emergency department for 7 and half hours. Patient reports since being here he has not had any episodes of generalized weakness or shakiness. Patient reports he feels very calm at this time. Patient states he has not used cocaine in the past 4 to 5 days. Patient denies chest pain or shortness of breath. Patient states he does not feel anxious. Patient has not had anything to eat or drink in the past 8 hours. We will give the patient juice and crackers. During his visit his vital signs have remained stable. Patient does have a history of sinus bradycardia with a heart rate in the 40s which is consistent with his vital signs today. Patient is not significantly hypo-or hyper tensive. Oxygen level is 100%. Patient is nontoxic-appearing in no acute distress. Patient reports he did receive information regarding drug rehab facilities yesterday as he was requesting help with his cocaine use. - Vital Signs Vital signs: Temp Pulse Resp BP Pulse Ox 98.0 F 49 L 16 135/86 H 97 02/04/19 07:51 02/04/19 07:51 02/04/19 07:51 02/04/19 07:51 02/04/19 07:51 - Laboratory Laboratory results interpreted by me: 02/04/19 02:39 Urine Ketones TRACE H Urine Urobilinogen 4.0 H - EKG Interpretation by Me Additional EKG results interpreted by me: 02/04/19 09:56 Patient's EKG shows a sinus bradycardia with a heart rate of 44. Patient's [place] interval 156, QT 436, QTc is 373. Patient has no ST segment changes in consecutive leads. Patient's previous EKG did show a sinus bradycardia of 41. This EKG was obtained within the past 24 hours. No significant change. Discharge - Discharge Clinical Impression: Weakness, Shakiness Condition: Stable Disposition: HOME, SELF-CARE Additional Instructions: Today you are seen the emergency department for weakness and a feeling of shakiness. We cannot find a definite cause for your weakness. Did obtain an EKG which did not show any significant changes from your previous EKG yesterday. Please continue to eat small frequent meals throughout the day as your weakness could be due to low blood sugar. Please drink plenty of fluids to stay hydrated. Please rest over the next 24 hours. *Please return to emergency department if you develop chest pain, abdominal pa in, severe headache, irregular heartbeat or very fast pulse, confusion, vision problems, fever muscular pain or any new or worsening symptoms. Weakness We did not find a definite cause for your weakness. This may require further medical tests. Weakness can be caused by infection, physical exhaustion, rapid weight loss, dehydration, or medicine side effects. Diseases of the mu scles, heart, nerves, and blood vessels can make you weak. Sometimes the problem is simply depression or lack of exercise. You should get plenty of rest. Unless the doctor tells you otherwise, it's usually best to add short periods of regular mild exercise. Eat a nutritious diet with multiple small, low-sugar meals. If symptoms continue, additional medical evaluation will be necessary. Be sure to follow up as instructed. If you become very dizzy, nauseated, or feel like you're going to faint, lie down right away. Wait until the symptoms have passed before you get up again. Stand up slowly. Call the doctor or return if you develop chest pain, abdominal pain, severe headache, irregular heartbeat or very fast pulse, confusion, vision problems, fever, muscular pain, or any other new symptom.
[2019-02-04 10:12] VITALS: BP 138/94
== END 2019-02-04 10:19 | disposition home or self-care (01) ==
LOC: ER 02:30
DX: R53.1 Weakness (principal); R00.1 Bradycardia, unspecified; R11.0 Nausea; F14.10 Cocaine abuse, uncomplicated; F12.10 Cannabis abuse, uncomplicated; F17.200 Nicotine dependence, unspecified, uncomplicated
CPT/HCPCS: 81001; 93005; 93010; 99285

== ENCOUNTER 2019-11-07 11:04 | Emergency (ER) | payer SELFPAY ==
[2019-11-07 11:15] VITALS: BP 157/85
--- NOTE | 2019-11-07 11:32 | ER Document Report ---
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 Was putting a washing machine down and then when he stood up felt pain in his back. Has had injuries to the low back before. Denies numbness or tingling in the legs. Denies perineal numbness. Denies incontinence of urine or bowel. Has taken no medications for his symptoms. States work sent him in today ROS: See HPI - all other systems were reviewed and are otherwise negative Constitutional: no fever or recent illness : no dysuria Integumentary: no rash Allergy: no hives Musculoskeletal: no extremity pain or swelling , + low back pain Neurological: no numbness/tingling, no weakness MEDICATIONS: I agree with the patient medications as charted by the RN. ALLERGIES: I agree with the allergies as charted by the RN. PAST MEDICAL HISTORY/PAST SURGICAL HISTORY: Reviewed and agree as charted by RN. SOCIAL HISTORY: Reviewed and agree as charted by RN. FAMILY HISTORY: No significant familial comorbid conditions directly related to patient complaint EXAM: Reviewed vital signs as charted by RN. CONSTITUTIONAL: Airway patent; alert and oriented and responds appropriately to questions. Well-appearing, well-nourished HEAD: Normocephalic, atraumatic EYES: Conjunctivae clear, sclerae non-icteric ENT: normal nose; no bleeding; normal voice, no stridor NECK: Trachea is midline; spine non-tender, no step-offs, good range of motion; no contusions or hematomas CARD: symetric distal pulses RESP: Normal chest excursion with respiration; chest wall appears atraumatic ABD/GI: Appears atraumatic without contusions or hematomas; non-distended, soft, non-tender, no rebound, no guarding; no palpable organomegaly or masses PELVIS: Stable, nontender BACK: The back appears atraumatic, no step-offs; mild tenderness across the lumbar paraspinous musculature bilaterally EXT: Normal ROM in all joints; non-tender to palpation; no cyanosis, no effusions, no edema SKIN: Normal color for age and race; warm; dry; good turgor; no apparent lesions NEURO: Moves all extremities equally; Motor and sensory function intact. Strength equal 5/5 bilateral lower extremities. Sensation intact and equal bilateral lower extremities. Straight leg raise is negative. No saddle anesthesia on exam. DTRs 2+ intact and equal bilateral lower extremities. PSYCH: The patient's mood and manner are appropriate. MDM: 34-year-old male low back injury 2 days ago at work while lifting. Was not using his work brace at the time but states they had just put the washing mach ine down when he had the back discomfort and spasm. Will place patient on Voltaren, mild muscle relaxer no heavy lifting for 5 days follow-up orthopedics. No indication for imaging at this time - REPRODUCTIVE Reproductive: DENIES: : Past Medical History - Social History Smoking Status: Unknown if Ever Smoked Family History: Reviewed & Not Pertinent Renal/ Medical History: Denies: Hx Peritoneal Dialysis - Immunizations Immunizations up to date: No Hx Diphtheria, Pertussis, Tetanus Vaccination: No Vertical Provider Document - INFECTION CONTROL TRAVEL OUTSIDE OF THE [place] IN LAST 30 DAYS: No Course - Vital Signs Vital signs: Temp Pulse Resp BP Pulse Ox 98.9 F 58 L 16 157/85 H 98 11/07/19 11:14 11/07/19 11:14 11/07/19 11:14 11/07/19 11:14 11/07/19 11:14 Discharge - Discharge Clinical Impression: Low back pain Qualifiers: Chronicity: acute Back pain laterality: bilateral Sciatica presence: without sciatica Qualified Code(s): M54.5 - Low back pain Condition: Stable Disposition: HOME, SELF-CARE Additional Instructions: 1. Warm heat to the lower back twice daily 2. no heavy lifting for 3-5 days 3. medications as prescribed, no driving on muscle relaxers 4. follow up with orthopedics for further evaluation and treatment as needed for any continuing pain or problems, call for appt. 5. return to the ER for any onset of incontinence of urine, fever > 101 or worsening condition Prescriptions: Cyclobenzaprine HCl [Flexeril 10 mg Tablet] 10 mg PO TIDP PRN #15 tab PRN Reason: Diclofenac Sodium [Voltaren 50 Mg Tablet.Dr] 50 mg PO BID #20 tablet.dr Forms: Return to Work Referrals: JOVAN HEARN DO [ACTIVE STAFF] - Follow up as needed
== END 2019-11-07 11:30 | disposition home or self-care (01) ==
LOC: ER 11:04
DX: M54.5 Low back pain (principal); X50.0XXA Overexertion from strenuous movement or load, initial encounter; Y99.0 Civilian activity done for income or pay
CPT/HCPCS: 99283

== ENCOUNTER 2020-02-09 11:21 | Emergency (ER) | payer SELFPAY ==
--- NOTE | 2020-02-09 11:54 | ER Document Report ---
ED Medical Screen (RME) - General Chief Complaint: Chest Pressure Stated Complaint: CHEST PAIN Time Seen by Provider: 02/09/20 11:50 Mode of Arrival: Wheelchair Information source: Patient Notes: 34-year-old male presented to ED for complaint of chest pain and pressure. He states it started about an hour before he called EMS. Medics gave him aspirin and sublingual nitro x2. He states that the pain was resolved after these medications. He states the only medical history he has is anxiety. He states he has not had any shortness of breath nausea vomiting or fevers. He states he does smoke marijuana daily and drinks daily. He is alert oriented respirations regular nonlabored speaking in full sentences. I have greeted and performed a rapid initial assessment of this patient. A comprehensive ED assessment and evaluation of the patient, analysis of test results and completion of medical decision making process will be conducted by an additional ED providers. TRAVEL OUTSIDE OF THE [place] IN LAST 30 DAYS: No - Related Data Allergies/Adverse Reactions: No Known Allergies Allergy (Verified 02/09/20 11:40) Past Medical History - General Information source: Patient - Social History Cigarette use (# per day): No Frequency of alcohol use: Heavy - Daily Drug Abuse: Marijuana - Daily Renal/ Medical History: Denies: Hx Peritoneal Dialysis Psychiatric Medical History: Reports: Hx Anxiety - Immunizations Immunizations up to date: No Hx Diphtheria, Pertussis, Tetanus Vaccination: No Physical Exam - Vital signs Vitals: Temp Pulse Resp BP Pulse Ox 98.3 F 82 14 133/88 H 100 02/09/20 11:41 02/09/20 11:41 02/09/20 11:41 02/09/20 11:41 02/09/20 11:41 Course - Vital Signs Vital signs: Temp Pulse Resp BP Pulse Ox 98.3 F 82 14 133/88 H 100 02/09/20 11:41 02/09/20 11:41 02/09/20 11:41 02/09/20 11:41 02/09/20 11:41
--- NOTE | 2020-02-09 12:59 | RADIOLOGY REPORT (SQ) ---
EXAM DESCRIPTION: CHEST 2 VIEWS IMAGES COMPLETED DATE/TIME: 02/09/2020 12:44 pm REASON FOR STUDY: chest pain/pressure COMPARISON: 02/02/2019 EXAM PARAMETERS: NUMBER OF VIEWS: two views TECHNIQUE: Digital Frontal and Lateral radiographic views of the chest acquired. RADIATION DOSE: NA LIMITATIONS: none FINDINGS: LUNGS AND PLEURA: No opacities, masses or pneumothorax. No pleural effusion. MEDIASTINUM AND HILAR STRUCTURES: No masses or contour abnormalities. HEART AND VASCULAR STRUCTURES: Heart normal size. No evidence for failure. BONES: No acute findings. HARDWARE: None in the chest. OTHER: No other significant finding. IMPRESSION: NO ACUTE RADIOGRAPHIC FINDING IN THE CHEST. TECHNICAL DOCUMENTATION: JOB ID: [id number] 2010 [employer]- All Rights Reserved Reading location - IP/workstation name: [email or web address]
[2020-02-09 13:47] LABS: ABSOLUTE EOSINOPHILS # (AUTO) 0.1 10^3/uL (0.0-0.6); ABSOLUTE LYMPHOCYTES (AUTO) 1.6 10^3/uL (0.5-4.7); ABSOLUTE MONOCYTES (AUTO) 0.5 10^3/uL (0.1-1.4); ABSOLUTE NEUT (AUTO) 5.1 10^3/uL (1.7-8.2); BASOPHILS % (AUTO) 0.6 % (0-2); EOSINOPHILS % (AUTO) 1.3 % (0-6); HEMATOCRIT 47.5 % (37.9-51.0); HEMOGLOBIN 16.8 g/dL (13.5-17.0); LYMPHOCYTES % (AUTO) 21.8 % (13-45); MEAN CORPUSCULAR HEMOGLOBIN 31.9 pg (27.0-33.4); MEAN CORPUSCULAR HGB CONC 35.4 g/dL (32.0-36.0); MEAN CORPUSCULAR VOLUME 90 fl (80-97); MONOCYTES % (AUTO) 7.4 % (3-13); PLATELET COUNT 233 10^3/uL (150-450); RED BLOOD COUNT 5.27 10^6/uL (4.35-5.55); RED CELL DISTRIBUTION WIDTH 13.3 % (11.5-14.0); SEGMENTED NEUTROPHILS % (AUTO) 68.9 % (42-78); TOTAL CELLS COUNTED % (AUTO) 100 %; WHITE BLOOD COUNT 7.3 10^3/uL (4.0-10.5)
--- NOTE | 2020-02-09 13:57 | ER Document Report ---
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 pt received Nitro SL x 2 and ASA 324mg PO enroute which resolved pain complaint, no reported SOB, N/V Initialized on 02/09/20 11:38 - END OF NOTE ED Medical Screen (Devon mascorro) - General Chief Complaint: Chest Pressure Stated Complaint: CHEST PAIN Time Seen by Provider: 02/09/20 11:50 Mode of Arrival: Wheelchair Information source: Patient Notes: 34-year-old male presented to ED for complaint of chest pain and pressure. He states it started about an hour before he called EMS. Medics gave him aspirin and sublingual nitro x2. He states that the pain was resolved after these medications. He states the only medical history he has is anxiety. He states he has not had any shortness of breath nausea vomiting or fevers. He states he does smoke marijuana daily and drinks daily. He is alert oriented respirations regular nonlabored speaking in full sentences. MY NOTES 34-year-old male with chief complaint of chest pain for 1 and half hours prior to arrival. Patient presented by EMS and was given nitro sublingual x2 and aspirin 324 by mouth which resolved the chest pain complaint. Patient arrives NAD. Patient reports he drank a beer for breakfast. He advised he smokes tim cabrera last night but denies any crack cocaine or any meth use. He was sitting with a friend on a picnic table at the park today when the chest pressure began. He had similar symptoms last year when he was diagnosed with anxiety and he tried to use some breathing exercises to prevent any shortness of breath and this was successful. He reports his entire chest was tight when this occurred. Patient reports he smokes half a pack of cigarettes daily since he was a teenager. He also drinks wine beer and liquor of water ;whatever is available. Patient denies any diaphoresis hemoptysis nosebleeds nuchal rigidity cephalgia family history of PUD or AAA or MIs. Patient denies any diarrhea constipation trauma abuse fever chills Covid exposure or flu exposure. He denies any use of Viagra or Levitra Cialis or any ED medications. He denies any [id number] herbal medicines or recreational mind altering drugs. TRAVEL OUTSIDE OF THE [place] IN LAST 30 DAYS: No - HPI Onset: Just prior to arrival Onset/Duration: Sudden, Better Quality of pain: Achy Severity: Moderate Pain Level: 3 Associated symptoms: Shortness of breath Exacerbated by: Movement, Deep breathing Relieved by: Denies Similar symptoms previously: Yes Recently seen / treated by doctor: No - Related Data Allergies/Adverse Reactions: No Known Allergies Allergy (Verified 02/09/20 11:40) Past Medical History - General Information source: Patient - Social History Smoking Status: Current Every Day Smoker Cigarette use (# per day): Yes Chew tobacco use (# tins/day): No Smoking Education Provided: Yes Frequency of alcohol use: Heavy - Daily Drug Abuse: Marijuana - Daily Lives with: Family Family History: Reviewed & Not Pertinent Patient has suicidal ideation: No Patient has homicidal ideation: No Renal/ Medical History: Denies: Hx Peritoneal Dialysis Psychiatric Medical History: Reports: Hx Anxiety - Immunizations Immunizations up to date: No Hx Diphtheria, Pertussis, Tetanus Vaccination: No Review of Systems - Review of Systems Constitutional: No symptoms reported EENT: No symptoms reported Cardiovascular: See HPI, Chest pain Respiratory: No symptoms reported Gastrointestinal: No symptoms reported Genitourinary: No symptoms reported Male Genitourinary: No symptoms reported Musculoskeletal: No symptoms reported Skin: No symptoms reported Hematologic/Lymphatic: No symptoms reported Neurological/Psychological: No symptoms reported -: Yes All other systems reviewed and negative Physical Exam - Vital signs Vitals: Temp Pulse Resp BP Pulse Ox 98.3 F 82 14 133/88 H 100 02/09/20 11:41 02/09/20 11:41 02/09/20 11:41 02/09/20 11:41 02/09/20 11:41 Interpretation: Hypotensive - General General appearance: Appears well, Alert - HEENT Head: Normocephalic, Atraumatic Eyes: Normal Pupils: PERRL - Respiratory Respiratory status: No respiratory distress Chest status: Tender Breath sounds: Normal Chest palpation: Normal - Cardiovascular Rhythm: Regular Heart sounds: Normal auscultation Murmur: No - Abdominal Inspection: Normal Distension: No distension Bowel sounds: Normal Tenderness: Nontender Organomegaly: No organomegaly - Rectal Prostate: Other - deferred - Genitourinary Scrotum: Other - deferred - Back Back: Normal, Nontender - Extremities General upper extremity: Normal inspection, Nontender, Normal color, Normal ROM, Normal temperature General lower extremity: Normal inspection, Nontender, Normal color, Normal ROM, Normal temperature, Normal weight bearing. No: Espinoza's sign - Neurological Neuro grossly intact: Yes Cognition: Normal Orientation: AAOx4 [place] Coma Scale Eye Opening: Spontaneous [place] Coma Scale Verbal: Oriented [place] Coma Scale Motor: Obeys Commands [place] Coma Scale Total: 15 Speech: Normal Motor strength normal: LUE, RUE, LLE, RLE Sensory: Normal - Psychological Associated symptoms: Normal affect, Normal mood - Skin Skin Temperature: Warm Skin Moisture: Dry Skin Color: Normal Course - Vital Signs Vital signs: Temp Pulse Resp BP Pulse Ox 98.3 F 82 15 133/92 H 100 02/09/20 11:41 02/09/20 11:41 02/09/20 14:01 02/09/20 14:01 02/09/20 14:01 - Laboratory Result Diagrams: 02/09/20 13:35 02/09/20 13:35 Laboratory results interpreted by me: 02/09/20 13:35 Creatine Kinase 318 H - Diagnostic Test Radiology reviewed: Reports reviewed - EKG Interpretation by Me EKG shows normal: Sinus rhythm Rate: Normal Rhythm: NSR - With [address] elevation no ST depression no T wave depression no T wave elevation and axis within normal limits. And this was read by myself and I agree with the EKG machine. Critical Care Note - Critical Care Note Comments: I discussed findings with patient and he appeared to understand. 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 Irineo Mckenna return to ER as needed encourage fluids take medicines as directed. Try to decrease and eventually stop smoking cigarettes and drinking alcohol. Prescriptions: Aspirin [Aspirin 81 mg Chewable Tablet] 81 mg PO DAILY #1 pkg Misoprostol [Cytotec 0.2 mg Tablet] 0.2 mg PO DAILY #10 tablet Esomeprazole Magnesium [Nexium] 20 mg PO DAILY #10 capsule.dr Referrals: GWENDOLYN MCKENNA MD [ACTIVE STAFF] - Follow up as needed
[2020-02-09 14:09] LABS: ALKALINE PHOSPHATASE 67 U/L (38-126); ANION GAP 9 (5-19); ASPARTATE AMINO TRANSFERASE 32 U/L (17-59); BILIRUBIN,TOTAL 0.4 mg/dL (0.2-1.3); BLOOD UREA NITROGEN 7 mg/dL (7-20); CALCIUM 9.5 mg/dL (8.4-10.2); CARBON DIOXIDE 26 mmol/L (22-30); CHLORIDE 103 mmol/L (98-107); CREATINE KINASE 318 U/L (55-170); GLUCOSE 85 mg/dL (75-110); POTASSIUM 4.5 mmol/L (3.6-5.0); TOTAL PROTEIN 7.2 g/dL (6.3-8.2)
[2020-02-09 14:20] LABS: CREATINE KINASE MB 1.65 ng/mL (<4.55)
[2020-02-09 14:22] LABS: TROPONIN I < 0.012 ng/mL
--- NOTE | 2020-02-09 18:00 | EKG REPORT ---
SEVERITY:- ABNORMAL ECG - SINUS ARRHYTHMIA, RATE 48-66 CONSIDER ANTEROSEPTAL INFARCT : Confirmed by: Chapincito Shipman MD 09-Feb-2020 17:59:30
[2020-02-09 19:54] VITALS: BP 130/81
== END 2020-02-09 19:52 | disposition home or self-care (01) ==
LOC: ER 11:21
DX: K21.9 Gastro-esophageal reflux disease without esophagitis (principal); R07.9 Chest pain, unspecified; R74.8 Abnormal levels of other serum enzymes; F41.9 Anxiety disorder, unspecified; F10.10 Alcohol abuse, uncomplicated; F12.10 Cannabis abuse, uncomplicated; F17.210 Nicotine dependence, cigarettes, uncomplicated
CPT/HCPCS: 36415; 71046; 80053; 82550; 82553; 84484; 85025; 93005; 93010; 99285